=== PATIENT | male | born 1945 | race Caucasian/White ===

== ENCOUNTER 2025-01-21 09:15 | Inpatient (IN) ==
[2025-01-21] MEDS: KETOROLAC 15 MG/ML VIAL IM ONE (09:32)
[2025-01-21] MEDS ORDERED: PROPOFOL 200 MG/20 ML VIAL IV ONE (13:53)
[2025-01-21] MEDS ORDERED: fentaNYL 100 MCG/2 ML VIAL ONE (13:53)
[2025-01-21] MEDS ORDERED: GLYCOPYRROLATE 0.2 MG/ML VIAL IV ONE (13:56)
[2025-01-21] MEDS ORDERED: DEXAMETHASONE 10 MG/ML VIAL ONE (13:56)
[2025-01-21] MEDS ORDERED: TRANEXAMIC ACID 1,000 MG/10 ML VIAL ONE (13:56)
[2025-01-21] MEDS ORDERED: LIDOCAINE 2% PF 5 ML VIAL ONE (13:56)
[2025-01-21] MEDS ORDERED: ONDANSETRON 4 MG/2 ML VIAL ONE (13:56)
[2025-01-21] MEDS ORDERED: FAMOTIDINE/PF 20 MG/2 ML VIAL IV ONE (13:57)
[2025-01-21] MEDS: ceFAZolin 2 GM in DEXTROSE 5% IN WATER 50 ML IV SCH (14:03)
[2025-01-21] MEDS ORDERED: ceFAZolin 2 GM in DEXTROSE 5% IN WATER 50 ML IV SCH (14:15)
[2025-01-21] MEDS ORDERED: MAGNESIUM SULFATE 2 GM/50 ML BAG IV ONE (14:17)
[2025-01-21 14:27] LABS: Basophils # (Auto) 0.03 K/mcL (0.00-0.30); Basophils % (Auto) 0.2 % (0.0-2.0); Eosinophils # (Auto) 0.04 K/mcL (0.00-0.70); Eosinophils % (Auto) 0.3 % (0.0-7.0); Hematocrit 43.2 % (40.1-51.0); Hemoglobin 14.3 g/dL (13.7-17.5); Lymphocytes # (Auto) 2.16 K/mcL (1.50-4.80); Lymphocytes % (Auto) 14.6 % (15.5-49.0); Mean Corpuscular HGB Conc 33.1 g/dL (31.0-36.0); Monocytes # (Auto) 1.15 K/mcL (0.10-0.90); Monocytes % (Auto) 7.8 % (1.0-12.0); Neutrophils % (Auto) 76.8 % (38.0-78.0); Platelet Count 318 K/mcL (140-440); RBC 4.92 M/mcL (4.63-6.08); WBC 14.8 K/mcL (4.5-11.0)
[2025-01-21] MEDS ORDERED: BENZOCAINE/MENTHOL 1 LOZENGE PO PRN ×2 (14:34→15:09)
[2025-01-21] MEDS ORDERED: LACTATED RINGERS 250 ML IV PRN (14:34)
[2025-01-21] MEDS ORDERED: fentaNYL 100 MCG/2 ML VIAL IV PRN (14:34)
[2025-01-21] MEDS ORDERED: HYDROmorphone 0.5 MG/0.5 ML SYRINGE IV PRN (14:34)
[2025-01-21] MEDS ORDERED: IPRATROPIUM/ALBUTEROL 3 ML AMPUL.NEB NEB PRN (14:34)
[2025-01-21] MEDS ORDERED: NALOXONE HCL 0.4 MG/ML VIAL IV PRN (14:34)
[2025-01-21] MEDS ORDERED: ONDANSETRON 4 MG/2 ML VIAL IV PRN ×2 (14:34→15:54)
[2025-01-21 14:36] LABS: ALT/SGPT 16 U/L (<40); AST/SGOT 22 U/L (<40); Albumin 4.4 gm/dL (3.2-5.2); Albumin/Globulin Ratio 1.3 (1.0-2.3); Alkaline Phosphatase 84 U/L (39-117); Anion Gap 15.0 (8.0-16.0); Bilirubin,Total 0.9 mg/dL (0.1-1.0); Blood Urea Nitrogen 9 mg/dL (8-23); Calcium 9.5 mg/dL (8.6-10.4); Carbon Dioxide 24 mmol/L (22-30); Chloride 102 mmol/L (96-108); Globulin 3.4 gm/dL (2.2-3.7); Glucose 110 mg/dL (70-105); Potassium 3.4 mmol/L (3.3-5.1); Sodium 141 mmol/L (133-145)
[2025-01-21] MEDS ORDERED: ePHEDrine 50 MG/5 ML SYRINGE (ANEST) IV ONE (14:50)
[2025-01-21] MEDS: ACETAMINOPHEN 1,000 MG/100 ML BAG IV ONE (15:00)
[2025-01-21] MEDS ORDERED: MAGNESIUM HYDROXIDE 30 ML ORAL.SUSP PO PRN (15:09)
[2025-01-21] MEDS ORDERED: POLYETHYLENE GLYCOL 3350 17 GM PACKET PO PRN (15:09)
[2025-01-21] MEDS ORDERED: BISACODYL 10 MG SUPP.RECT PR PRN (15:09)
[2025-01-21] MEDS ORDERED: FLEETS ADULT 1 DOSE ENEMA PR PRN (15:09)
[2025-01-21] MEDS ORDERED: 0.9 % SODIUM CHLORIDE 10 ML SYRINGE IV SCH (15:15)
[2025-01-21] MEDS: TRANEXAMIC ACID 1,000 MG/10 ML VIAL IV SCH (15:15)
[2025-01-21] MEDS: METHOCARBAMOL 1,000 MG/10 ML VIAL IV PRN (15:34)
[2025-01-21] MEDS: LACTATED RINGERS 1,000 ML IV SCH (16:05)
[2025-01-21] MEDS ORDERED: SENNOSIDES 1 TABLET PO SCH (21:00)
[2025-01-21] MEDS: ACETAMINOPHEN 500 MG TABLET PO SCH (21:43)
[2025-01-21] MEDS: DOCUSATE SODIUM 100 MG CAPSULE PO SCH (21:44)
[2025-01-21] MEDS: 0.9 % SODIUM CHLORIDE 10 ML SYRINGE IV SCH (21:45)
[2025-01-21] MEDS: SENNOSIDES 1 TABLET PO SCH (21:45)
[2025-01-22] MEDS: LACTATED RINGERS 1,000 ML IV SCH (06:34)
[2025-01-22] MEDS: TRANEXAMIC ACID 1,000 MG/10 ML VIAL IV SCH (06:36)
[2025-01-22] MEDS: ceFAZolin 2 GM in DEXTROSE 5% IN WATER 50 ML IV SCH (06:37)
[2025-01-22 06:45] LABS: Basophils # (Auto) 0.01 K/mcL (0.00-0.30); Basophils % (Auto) 0.1 % (0.0-2.0); Eosinophils # (Auto) 0 K/mcL (0.00-0.70); Eosinophils % (Auto) 0 % (0.0-7.0); Hematocrit 36.7 % (40.1-51.0); Hemoglobin 12.3 g/dL (13.7-17.5); Lymphocytes # (Auto) 1.07 K/mcL (1.50-4.80); Lymphocytes % (Auto) 6.9 % (15.5-49.0); Mean Corpuscular HGB Conc 33.5 g/dL (31.0-36.0); Monocytes # (Auto) 0.70 K/mcL (0.10-0.90); Monocytes % (Auto) 4.5 % (1.0-12.0); Neutrophils % (Auto) 88.3 % (38.0-78.0); Platelet Count 312 K/mcL (140-440); RBC 4.14 M/mcL (4.63-6.08); WBC 15.5 K/mcL (4.5-11.0)
[2025-01-22] MEDS ORDERED: ALBUTEROL SULFATE 60 PUFF INHALER INH PRN (08:03)
[2025-01-22 08:23] VITALS: O2SAT 93
[2025-01-22] MEDS: buPROPion 150 MG TAB.XL.24H PO SCH (08:36)
[2025-01-22] MEDS: LOSARTAN 50 MG TABLET PO SCH (08:37)
[2025-01-22] MEDS: LORATADINE 10 MG TABLET PO SCH (08:38)
[2025-01-22] MEDS: POTASSIUM CHLORIDE 10 MEQ TABLET PO SCH (08:38)
[2025-01-22] MEDS: FAMOTIDINE 20 MG TABLET PO SCH (08:40)
[2025-01-22] MEDS: ENOXAPARIN 40 MG/0.4 ML SYRINGE SQ SCH (08:40)
[2025-01-22] MEDS: HYDROCHLOROTHIAZIDE 12.5 MG CAPSULE PO SCH (08:40)
[2025-01-22] MEDS ORDERED: NON FORMULARY MEDICATION 1 DOSE MISCELL (Losartan-Hydrochlorothiazide 100-12.5 mg tablet) PO SCH (09:00)
[2025-01-22 11:59] VITALS: TEMP 98.7
[2025-01-22] MEDS ORDERED: ATORVASTATIN 10 MG TABLET PO SCH (21:00)
== END 2025-01-22 12:30 | disposition home or self-care (01) | DRG 482 ==
LOC: ED 09:15 → SSSU 13:51 → MEDSUR 15:54
PROVIDERS: ADMIT Internal Medicine; ATTEND Orthopaedic Surgery